=== PATIENT | male | born 1995 | race Caucasian/White ===

== ENCOUNTER 2016-09-02 10:44 | Emergency (ER) | payer MEDICAID ==
[~2016-09-02] VITALS: Ht 180.3 cm; Wt 110.9 kg
[~2016-09-02 10:44] MED LIST: ACET-2321 PO; ALBU8.5H INH; ARIP30TA11 PO; CLON1TAB4 PO; DIPH28.34 TOP; HYDR50TA48 PO; LITH300T2 PO; LITH600C PO; LORA0.5T2 PO; MAG-76 PO; MELA5TAB13 PO; ONDA4TAB10 PO; PALI6TAB PO; [UNRECOGNIZED DRUG - CODE] PO
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
--- OUTSIDE RECORDS SUMMARY | 2016-09-02 10:49 | XMS REPORT | Continuity of Care Document ---
Author Author [facility] Organization [facility] Address Unknown Phone Unavailable Care Team Providers Care Editorial Project Manager Name Role Phone KATIE LINK Primary Care Physician [phone] Insurance Providers Guarantor Elan Little Address [address] [place] [address] Email DENIED 07-06-16 [facility] Policy Number [id number] Subscriber's Name AnabelElan wilder Bria Relationship 18 Self Effective Date 16 Expiration Date 16 Advance Directives Directive Response Recorded Date/Time Advanced Directives Type None 07/06/16 2:52pm Chief Complaint and Reason for Visit Chief Complaint Psychiatric Problems Reason for Visit Suicidal ideation Bipolar disorder Problems Active Problems Medical Problem Onset Date Status Addiction Unknown Past Problems Medical Problem Onset Date Bipolar disorder Unknown Bronchitis Unknown Marijuana abuse Unknown Patient left without being seen Unknown Stress response Unknown Suicidal ideation Unknown Suicidal ideation Unknown Tobacco abuse Unknown Medications Current Home Medications Medication Dose Units Route Directions Days Qty Instructions Start Date Acetaminophen (Tylenol) 325 Mg Tablet 650 Mg Oral Every 4 Hours as needed for Pain/Fever 03/27/16 Albuterol Sulfate (Proair Hfa 90 Mcg/Actuation) 8.5 Gm Hfa.aer.ad 1 Puff Inhalation Every 4 Hours as needed for Shortness Of Air/Wheezing 10/06 Aripiprazole 30 Mg Tablet 30 Mg Oral Daily 11/10/15 Clonazepam 1 Mg Tablet 1 Mg Oral Twice A Day 07/06/16 Diphenhydramine Hcl/Zinc Acet (Benadryl Itch Stopping Crm) 28.3 Gm Cream..g. 1 Applic Topically Three Times A Day as needed for Itching 04/27/16 Guaifenesin/Dextromethorphan (Q-Tussin Dm Syrup) 473 Ml Syrup 5 Ml Oral Every 6 Hours as needed for Cough 03/27/16 Hydroxyzine Hcl 50 Mg Tablet 50 Mg Oral Twice A Day 04/27/16 [place] Carbonate 300 Mg Tablet.er 300 Mg Oral Twice A Day 0700 & 1400 11/10/15 [place] Carbonate 600 Mg Capsule 600 Mg Oral Bedtime 11/10/15 Lorazepam 0.5 Mg Tablet 0.5 Mg Oral Daily as needed for Anxiety 03/27/16 Mag Hydrox/Al Hydrox/Simeth (Antacid Liquid) 355 Ml Oral.susp 30 Ml Oral Daily as needed for Indigestion 04/27/16 Melatonin 5 Mg Tab.rapdis 10 Mg Oral Bedtime as needed for Insomnia 04/27/16 Ondansetron (Ondansetron Odt) 4 Mg Tab.rapdis 4 Mg Oral Four Times Daily as needed for Nausea &/Or Vomiting 07/06/16 Paliperidone (Invega) 6 Mg Tab.er.24 6 Mg Oral Bedtime 11/10/15 Social History Social History Problem Response Recorded Date/Time Onset Date Status Hx Substance Use Y HX OF MARIJUANA USE 07/06/2016 3:18pm Not Applicable Not Applicable Hx Alcohol Use Y RARELY 07/06/2016 3:18pm Not Applicable Not Applicable Tobacco Usage none 11/10/2015 10:38pm Not Applicable Not Applicable Query Response Start Date Stop Date Smoking Status Never smoker Hospital Discharge Instructions No hospital discharge instructions. Plan of Care Discharge Date 07/06/16 6:31pm Disposition 65 TO PSYCH HOSP/UNIT Condition at Discharge Stable Instructions/Education Provided Medical Clearance for Psychiatric Care (ED) Prescriptions See Medication Section Referrals GARRY JEROME MD Address: [address] [place] [address] [phone] KATIE LINK Address: [address] [place] [address] Functional Status No functional status results. Allergies, Adverse Reactions, Alerts Allergen Type Severity Reaction Status Last Updated Ziprasidone Allergy Severe "JAW LOCKS UP" Active 07/06/16 Immunizations Query Response on File Recorded Date/Time Influenza Vaccine Hx 201507/06/16 3:18pm Vital Signs Acute Vital Signs Vital Response Date/Time Temperature (Fahrenheit) 98.1 deg F (96.8 - 99.1) 07/06/2016 6:31pm Temperature (Calculated Celsius) 36.07423 degrees C (36.0 - 37.3) 07/06/2016 6:31pm Pulse Rate (adult) 87 bpm (60 - 100) 07/06/2016 6:31pm Respiratory Rate 18 breaths/min (10 - 20) 07/06/2016 6:31pm O2 Sat by Pulse Oximetry 100 % (90 - 100) 07/06/2016 6:31pm Blood Pressure 132/75 mm Hg 07/06/2016 6:31pm Height (Feet) 5 feet 07/06/2016 2:52pm Height (Inches) 11.00 inches 07/06/2016 2:52pm Weight (Kilograms) 113.700 kg 07/06/2016 2:52pm Body Mass Index (BMI) 34.0 07/06/2016 2:52pm Results Laboratory Results Test Name Result Units Flags Reference Collection Date/Time Result Date/ Time Comments B-Hydroxybutyrate 0.10 MMOL/L 0-0.6 04/27/2016 11:15am 04/27/2016 11: 34am Oxygen Delivery Method (LAB) ROOM AIR 04/27/2016 11:16am 2015 11:23am Venous Blood pH 7.370 7.31-7.41 04/27/2016 11:16am 04/27/2016 11: 23am Venous Blood Partial Pressure CO2 46 MMHG 40-52 04/27/2016 11:16am 09/2015 11:23am Venous Blood Partial Pressure O2 37 MMHG L 40-52 04/27/2016 11:16am 09/2015 11:23am Venous Blood HCO3 27 MEQ/L H 22-26 04/27/2016 11:16am 04/27/2016 11: 23am Venous Blood Total Carbon Dioxide 28.0 MEQ/L 04/27/2016 11:16am 04/27 11:23am Venous Blood Base Excess 0.9 MMOL/L -2.0-2.0 04/27/2016 11:16am 2015 11:23am Venous Blood Oxygen Saturation 69.0 % 04/27/2016 11:16am 04/27/2016 11:23am White Blood Count 11.8 T/MM3 H 4.5-11.0 07/06/2016 3:52pm 07/06/2016 4: 04pm Red Blood Count 5.25 M/MM3 4.50-5.90 07/06/2016 3:pm 07/06/2016 4: 04pm Hemoglobin 15.4 GM/DL 13.5-17.5 07/06/2016 3:pm 07/06/2016 4:04pm Hematocrit 45.3 % 41-53 07/06/2016 3:07/06/2016 4:04pm Mean Corpuscular Volume 86.3 UM3 80-100 07/06/2016 3:07/06/2016 4: 04pm Mean Corpuscular Hemoglobin 29.3 UUG 26-34 07/06/2016 3:2016 4:04pm Mean Corpuscular Hemoglobin Concent 34.0 GM/DL 31-37 07/06/2016 3:07/06/2016 4:04pm RDW Standard Deviation 40.3 FL 36.9-50.2 07/06/2016 3:07/06/2016 4 :04pm Platelet Count 314 T/MM3 130-400 07/06/2016 3:07/06/2016 4:04pm Mean Platelet Volume 9.7 UM3 9.4-12.4 07/06/2016 3:07/06/2016 4: 04pm Neutrophils (%) (Auto) 68.7 % H 33-66 07/06/2016 3:07/06/2016 4: 04pm Lymphocytes (%) (Auto) 21.8 % L 23-45 07/06/2016 3:07/06/2016 4: 04pm Monocytes (%) (Auto) 5.4 % 0-9.0 07/06/2016 3:07/06/2016 4:04pm Eosinophils (%) (Auto) 3.6 % 0-4 07/06/2016 3:07/06/2016 4:04pm Basophils (%) (Auto) 0.3 % 0-2 07/06/2016 3:07/06/2016 4:04pm Immature Granulocyte % (Auto) 0.2 % 0.0-0.5 07/06/2016 3:52pm 2016 4:04pm Absolute Neutrophils (auto) 8.1 T/MM3 H 1.8-7.7 07/06/2016 3:2016 4:04pm Absolute Lymphocytes (auto) 2.6 T/MM3 1-4.8 07/06/2016 3:52pm 2016 4:04pm Absolute Monocytes (auto) 0.6 T/MM3 0-0.8 07/06/2016 3:52pm 07/06/2016 4:04pm Absolute Eosinophils (auto) 0.4 T/MM3 0-0.5 07/06/2016 3:52pm 2016 4:04pm Absolute Basophils (auto) 0.0 T/MM3 0-0.2 07/06/2016 3:52pm 07/06/2016 4:04pm Absolute Immature Granulocyte (auto 0.02 T/MM3 0.00-0.03 07/06/2016 3: 07/06/2016 4:04pm Icterus Index < 2 0-7 07/06/2016 3:07/06/2016 4:14pm Chemistry Specimen Hemolysis < 15 0-25 07/06/2016 3:pm 07/06/2016 4 :14pm 0-25: Specimen Exhibited No Hemolysis. Turbidity < 20 0-20 07/06/2016 3:pm 07/06/2016 4:14pm Sodium Level 141 MEQ/L 134-144 07/06/2016 3:52pm 07/06/2016 4:14pm Potassium Level 3.9 MEQ/L 3.6-5 07/06/2016 3:07/06/2016 4:14pm Chloride Level 106 MEQ/L 98-107 07/06/2016 3:52pm 07/06/2016 4:14pm Carbon Dioxide Level 24 MEQ/L 22-30 07/06/2016 3:52pm 07/06/2016 4: 14pm Anion Gap 11 MEQ/L 5-15 07/06/2016 3:52pm 07/06/2016 4:14pm Blood Urea Nitrogen 13.0 MG/DL 9-20 07/06/2016 3:52pm 07/06/2016 4: 14pm Creatinine 1.0 MG/DL 0.8-1.5 07/06/2016 3:52pm 07/06/2016 4:14pm BUN/Creatinine Ratio 13 RATIO 6-26 07/06/2016 3:52pm 07/06/2016 4:14pm Glomerular Filtration Rate Calc 95 07/06/2016 3:52pm 07/06/2016 4: 14pm Glucose Level 91 MG/DL 75-110 07/06/2016 3:52pm 07/06/2016 4:14pm Calculated Osmolality 271 MOSM/KG 261-280 07/06/2016 3:52pm 07/06/2016 4:14pm Calcium Level 9.5 MG/DL 8.4-10.2 07/06/2016 3:52pm 07/06/2016 4:14pm Total Bilirubin 0.30 MG/DL 0.20-1.30 07/06/2016 3:52pm 07/06/2016 4: 14pm Alkaline Phosphatase 69 U/L 38-126 07/06/2016 3:52pm 07/06/2016 4:14pm Total Protein 6.9 G/DL 6.3-8.2 07/06/2016 3:52pm 07/06/2016 4:14pm Albumin 4.1 G/DL 3.5-5.0 07/06/2016 3:52pm 07/06/2016 4:14pm Globulin 2.8 G/DL 2.4-3.6 07/06/2016 3:52pm 07/06/2016 4:14pm Albumin/Globulin Ratio 1.5 RATIO 1.1-2.2 07/06/2016 3:pm 07/06/2016 4 :14pm Aspartate Amino Transf (AST/SGOT) 26 U/L 17-59 07/06/2016 3:52pm 2016 4:14pm Alanine Aminotransferase (ALT/SGPT) 52 U/L 21-72 07/06/2016 3:52pm 4:14pm Magnesium Level 1.8 MG/DL 1.6-2.3 07/06/2016 3:52pm 07/06/2016 4:14pm Acetaminophen Level < 10 UG/ML L 10-30 07/06/2016 3:52pm 07/06/2016 4: 14pm TOXIC <4 HR POST INGESTION: >150 MG/L; TOXIC <12 HR POST INGESTION: >50 MG/L Salicylates Level < 1.0 MG/DL L 2-20 07/06/2016 3:52pm 07/06/2016 4: 14pm Alcohol, Quantitative <10 MG/DL <10 07/06/2016 3:52pm 07/06/2016 4: 14pm [place]on Level 0.6 MMOL/L 0.6-1.2 07/06/2016 3:52pm 07/06/2016 4:12pm Urine Collection Type VOIDED-NOT CC-MIDSTR 07/06/2016 3:57pm 2016 4:08pm Urine Color YELLOW YELLOW 07/06/2016 3:57pm 07/06/2016 4:08pm Urine Turbidity CLEAR CLEAR 07/06/2016 3:57pm 07/06/2016 4:08pm Urine Specific [place] 1.020 1.015-1.025 07/06/2016 3:57pm 2016 4:08pm Urine pH 6.0 5.0-8.0 07/06/2016 3:57pm 07/06/2016 4:08pm Urine Leukocyte Esterase NEGATIVE NEGATIVE 07/06/2016 3:57pm 2016 4:08pm Urine Nitrite NEGATIVE NEGATIVE 07/06/2016 3:57pm 07/06/2016 4:08pm Urine Protein NEGATIVE NEGATIVE 07/06/2016 3:57pm 07/06/2016 4:08pm Urine Glucose (UA) NEGATIVE NEGATIVE 07/06/2016 3:57pm 07/06/2016 4: 08pm Urine Ketones NEGATIVE NEGATIVE 07/06/2016 3:57pm 07/06/2016 4:08pm Urine Urobilinogen 0.2 EU/DL NORMAL 07/06/2016 3:57pm 07/06/2016 4: 08pm Urine Bilirubin NEGATIVE NEGATIVE 07/06/2016 3:57pm 07/06/2016 4: 08pm Urine Blood NEGATIVE NEGATIVE 07/06/2016 3:57pm 07/06/2016 4:08pm Urinalysis Comment MICROSCOPIC NOT IND. 07/06/2016 3:57pm 2016 4:08pm Procedures Procedure Status Date Provider(s) Routine venipuncture Completed 04/27/16 X-ray exam series abdomen Completed 04/27/16 Metabolic panel total ca Completed 04/27/16 Drug screen quantalcohols Completed 04/27/16 Analgesics non-opioid 1 or 2 Completed 04/27/16 Analgesics non-opioid 1 or 2 Completed 04/27/16 Acetone assay Completed 04/27/16 Blood gases any combination Completed 04/27/16 Complete cbc w/auto diff wbc Completed 04/27/16 Electrocardiogram tracing Completed 04/27/16 Hydrate iv infusion add-on Completed 04/27/16 Ther/proph/diag iv inf init Completed 04/27/16 Tx/pro/dx inj new drug addon Completed 04/27/16 Emergency dept visit Completed 04/27/16 830720"INJECTION, ONDANSETRON HYDROCHLORIDE, PER 1 MG" Completed 04/27/16 936787"INFUSION, NORMAL SALINE SOLUTION , 1000 CC" Completed 04/27/16 537016"INFUSION, NORMAL SALINE SOLUTION , 250 CC" Completed 04/27/16 794722"INJECTION, FAMOTIDINE, 20 MG" Completed 04/27/16 Encounters Encounter Location Arrival/Admit Date Discharge/Depart Date Attending Provider Departed Emergency Room [facility] 07/06/16 2:49pm 07/06/16 6: 31pm INDIANA DASH MD Departed Emergency Room [facility] 04/27/16 10:28am 04/27/16 12: 35pm SEPTEMBERRANDY DO Departed Emergency Room [facility] 04/26/16 10:41pm 04/26/16 11: 48pm NAYANA CHURCH MD Recent Diagnosis
[2016-09-02 10:50] VITALS: Ht 180.3 cm; Wt 110.9 kg
--- NOTE | 2016-09-02 11:09 | NUR ---
DR DR FUNK AT BEDSIDE.
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
--- NOTE | 2016-09-02 11:18 | ERPDOC ---
Departure Disposition Decision Date: Sep 02, 2016 Disposition Decision Time: 13:07 Disposition: 66 TO [facility] Impression Impression Impression: Primary Impression: Suicidal ideation Additional Impression: Bipolar disorder Severity: Moderate Condition: Stable Seen By: Physician only Referrals: KATIE LINK (PCP) GARRY JEROME MD (Family) Problems/Meds/Labs Reviewed?: Yes Medications reviewed and manag: Yes Follow up care ordered?: Yes Mental Status: Alert, Oriented [facility] - General Medical General Chief Complaint: Psychiatric Problems Stated Complaint: PSYCH EVAL Time Seen by Provider: 11:15 HPI - General Medical Initial Comments 21-year-old male presents with self-harm thoughts. Patient has a history of bipolar disorder, multiple medication and lives at [facility] in a local [facility]. 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 He feels like he has anger issues. He does not necessarily want to but feels like he is going to harm himself because of the thoughts he is having. He is taking trazodone which he thinks helps with sleep, but feels like his medications need to be adjusted. He did have an inpatient admission about a month ago to [facility], but left voluntarily and regrets it. Allergies: Coded Allergies: ziprasidone (Verified Allergy, Severe, "JAW LOCKS UP", 09/02/16) Past History Past Medical History Psychological: bipolar, depression Surgical History Denies Surgeries Family History Family History: Negative Social History Substance Use Type: marijuana Alcohol Intake: none Record Review Pertinent history updated: Yes Review of Systems Neurological General: see HPI Psychiatric Psychiatric: see HPI All other Systems All Other Systems: Reviewed and Negative Physical Exam General General Nourishment: well nourished, no acute distress, obese Vitals and Pain First Documented Vital Signs Date Time Temp Pulse Resp B/P Pulse Ox O2 Delivery O2 Flow Rate FiO2 09/02/16 10:50 98.9 90 16 119/60 98 Room Air Weight: Kilograms: Height (feet): 5 Height (inches): 11.00 Triage Pain Scale: Normal Exams: Head: Normocephalic w/o trauma Chest/Resp: Clear all lang, with good airflow, and symmetry bilaterally CV: Regular rate and rhythm, without murmur or gallop, Pulses 2+ all extremities, capillary refill, <2 seconds all ext., no pedal edema noted Abdomen: Bowel sounds positive, soft, non-tender, non-distended, no hepatosplenomegaly, masses or bruits noted Neurologic: Patient is alert, and oriented, cranial nerves, motor/sensory/ cerebellar, exams w/o gross deficits, to observation Differential Diagnoses Considering: Alcohol Intoxication, Depression, Encephalitis, Meningitis, Psychosis Progress Results/Orders Orders Procedure Category Date Status Time Cbc W/Auto LAB 09/02/16 Complete Diff-Reflex Manual 11:20 Cmp - Comprehensive LAB 09/02/16 Complete Metabolic 11:20 Ethanol LAB 09/02/16 Complete 11:20 Drug Screen LAB 09/02/16 Complete [place] [facility] [place] Acetaminophen LAB 09/02/16 Complete 11:20 Salicylate LAB 09/02/16 Complete 11:20 Ua, Dip Wreflex LAB 09/02/16 Complete Microsc & Career Manager 11:20 Tsh - Thyroid Stim LAB 09/02/16 Complete Hormone 11:20 Lab Results Laboratory Tests Test 09/02/16 11:36 09/02/16 11:43 09/02/16 12:24 White Blood Count 10.3T/MM3 Red Blood Count 5.23M/MM3 Hemoglobin 15.3GM/DL Hematocrit 46.0% Mean Corpuscular Volume 88.0UM3 Mean Corpuscular Hemoglobin 29.3UUG Mean Corpuscular Hemoglobin Concent 33.3GM/DL RDW Standard Deviation 42.5FL Platelet Count 322T/MM3 Mean Platelet Volume 9.6UM3 Immature Granulocyte % (Auto) 0.1% Neutrophils (%) (Auto) 68.5% Lymphocytes (%) (Auto) 20.0% Monocytes (%) (Auto) 6.0% Eosinophils (%) (Auto) 5.0% Basophils (%) (Auto) 0.4% Absolute Immature Granulocyte (auto 0.01T/MM3 Absolute Neutrophils (auto) 7.0T/MM3 Absolute Lymphocytes (auto) 2.1T/MM3 Absolute Monocytes (auto) 0.6T/MM3 Absolute Eosinophils (auto) 0.5T/MM3 Absolute Basophils (auto) 0.0T/MM3 Turbidity < 20 Sodium Level 145MEQ/L Potassium Level 4.4MEQ/L Chloride Level 108MEQ/L Carbon Dioxide Level 26MEQ/L Anion Gap 11MEQ/L Blood Urea Nitrogen 12.0MG/DL Creatinine 0.9MG/DL Glomerular Filtration Rate Calc 108 BUN/Creatinine Ratio 13RATIO Glucose Level 97MG/DL Calculated Osmolality 279MOSM/KG Calcium Level 9.7MG/DL Total Bilirubin 0.70MG/DL Icterus Index < 2 Aspartate Amino Transf (AST/SGOT) 35U/L Alanine Aminotransferase (ALT/SGPT) 55U/L Alkaline Phosphatase 65U/L Total Protein 7.2G/DL Albumin 4.4G/DL Globulin 2.8G/DL Albumin/Globulin Ratio 1.6RATIO Thyroid Stimulating Hormone (TSH) 2.31MIU/L Chemistry Specimen Hemolysis 36 Salicylates Level < 1.0MG/DL Acetaminophen Level < 10UG/ML Alcohol, Quantitative <10MG/DL Urine Collection Type Voided-not cc-midstr Urine Color Yellow Urine Turbidity Clear Urine pH 7.5 Urine Specific [place] 1.010 Urine Protein Negative Urine Glucose (UA) Negative Urine Ketones Negative Urine Blood Negative Urine Nitrite Negative Urine Bilirubin Negative Urine Urobilinogen 1.0EU/DL Urine Leukocyte Esterase Negative Urinalysis Comment Microscopic not ind. Urine Opiates Screen NegativeNG/ML Urine Oxycodone Screen NegativeNG/ML Urine Methadone Screen NegativeNG/ML Urine Propoxyphene Screen NegativeNG/ML Urine Barbiturates Screen NegativeNG/ML Urine Tricyclic Antidepressants NegativeNG/ML Urine Phencyclidine Screen NegativeNG/ML Urine Amphetamines Screen NegativeNG/ML Urine Methamphetamines Screen NegativeNG/ML Urine Benzodiazepines Screen NegativeNG/ML Urine Cocaine Screen NegativeNG/ML Urine Cannabinoids Screen NegativeNG/ML Lab Scanned Report REFERENCE [id number] Progress Progress Patient is medically stable with normal labs. He is on the verge of intent, having come to the emergency department because he is having suicidal thoughts and is afraid that he will harm himself. He is voluntary for admission. I spoke with Moody Quiles APRN at [facility] and patient is appropriate for admission. Pt is stable on discharge to [facility]. EDWINA FUNK MD Sep 02, 2016 11:18
--- NOTE | 2016-09-02 11:23 | NUR ---
LAB NOTIFIED TECH OF NEED FOR VENIPUNTURE AND PRESENCE FOR UA/UDS.
--- NOTE | 2016-09-02 11:25 | NUR ---
STATUS PT SITTING IN BEDSIDE CHAIR NEXT TO RESCARE DAY SERVICES WORKER. PT AND WORKER LISTENING TO MUSIC ON PHONE. INFORMED PT OF PENDING LAB WORK AND URINE NEEDED. UNDERSTANDING VERBALIZED.
[2016-09-02] MEDS ORDERED: TRAZ-173 PO (11:30)
--- NOTE | 2016-09-02 11:36 | NUR ---
MEDICAL INSURANCE CODING SPECIALIST AT BEDSIDE FOR VENIPUNCTURE AND UDS COLLECTION.
[2016-09-02 11:50] LABS: BASOPHILS % (AUTO) 0.4 % (0-2); EOSINOPHILS # (AUTO) 0.5 T/MM3 (0-0.5); HGB - HEMOGLOBIN 15.3 GM/DL (13.5-17.5); IMMATURE GRANULOCYTE # (AUTO) 0.01 T/MM3 (0.00-0.03); IMMATURE GRANULOCYTE % (AUTO) 0.1 % (0.0-0.5); LYMPHOCYTES # (AUTO) 2.1 T/MM3 (1-4.8); MEAN CORPUSCULAR HGB 29.3 UUG (26-34); MEAN CORPUSCULAR HGB CONC(MCHC 33.3 GM/DL (31-37); MEAN PLATELET VOLUME 9.6 UM3 (9.4-12.4); MONOCYTES # (AUTO) 0.6 T/MM3 (0-0.8); NEUTROPHILS % (AUTO) 68.5 % (33-66); RED BLOOD COUNT 5.23 M/MM3 (4.50-5.90); WBC - WHITE BLOOD COUNT 10.3 T/MM3 (4.5-11.0)
[2016-09-02 11:51] LABS: BLOOD, URINE NEGATIVE (NEGATIVE); COLOR,URINE YELLOW (YELLOW); LEUKOCYTE ESTERASE ,URINE NEGATIVE (NEGATIVE); NITRITE,URINE NEGATIVE (NEGATIVE)
[2016-09-02 12:00] LABS: AMPHETAMINE SCREEN,URINE NEGATIVE; BARBITURATE SCREEN,URINE NEGATIVE; BENZODIAZEPINES SCREEN,URINE NEGATIVE; CANNABINOID SCREEN,URINE NEGATIVE; COCAINE SCREEN,URINE NEGATIVE; METHADONE SCREEN, URINE NEGATIVE; METHAMPHETAMINE SCREEN, URINE NEGATIVE; OPIATE SCREEN,URINE NEGATIVE; PHENCYCLIDINE SCREEN,URINE NEGATIVE; TRICYCLIC ANTIDEPRESSANT,URINE NEGATIVE
[2016-09-02 12:00] LABS: ACETAMINOPHEN < 10 UG/ML (10-30); ALBUMIN 4.4 G/DL (3.5-5.0); ALBUMIN/GLOBULIN RATIO 1.6 RATIO (1.1-2.2); ALKALINE PHOSPHATASE 65 U/L (38-126); ALT (SGPT) 55 U/L (21-72); ANION GAP 11 MEQ/L (5-15); AST (SGOT) 35 U/L (17-59); BUN/CREATININE RATIO 13 RATIO (6-26); CALCIUM 9.7 MG/DL (8.4-10.2); CHLORIDE 108 MEQ/L (98-107); CO2 - CARBON DIOXIDE 26 MEQ/L (22-30); CREATININE 0.9 MG/DL (0.8-1.5); ETHANOL <10 MG/DL (<10); GLOMERULAR FILTRATION RATE 108; GLUCOSE 97 MG/DL (75-110); POTASSIUM 4.4 MEQ/L (3.6-5); SALICYLATE < 1.0 MG/DL (2-20); SODIUM 145 MEQ/L (134-144); TOTAL PROTEIN 7.2 G/DL (6.3-8.2)
--- OUTSIDE RECORDS SUMMARY | 2016-09-02 12:04 | XMS REPORT | Continuity of Care Document ---
Author Author [facility] Organization [facility] Address Unknown Phone Unavailable Allergies Active Description [...] Status Pt. Type Provider Facility Loc./Unit Complaint [id number] 08/30/2013 10:23:00 2013 12:36:00 DIS Emergency Arturo Mclain MD [facility] on [address]
--- NOTE | 2016-09-02 12:19 | NUR ---
STATUS PT EDUCATED REGARDING INABILITY TO LEAVE UNIT TO SMOKE. RATIONAL PROVIDED. INSTRUCTED PT REGARDING PLAN OF CARE. RESCARE WORKER VERBALIZED UNDERSTANDING.
[2016-09-02 12:39] LABS: THYROID STIM HORMONE-TSH 2.31 MIU/L (0.47-4.68)
--- NOTE | 2016-09-02 12:40 | NUR ---
PO PT GIVEN SANDWICH, APPLESAUCE, PUDDING AND MILK OKAYED BY DR FUNK. RESCARE WORKER REMAINS AT BEDSIDE.
--- NOTE | 2016-09-02 12:46 | NUR ---
STATUS RESCARE WORKER CHANGED. NOW, CHERELLE, MEDICAL COORDINATOR OF RESCARE AT BEDSIDE.
--- NOTE | 2016-09-02 13:11 | NUR ---
DR DR FUNK AT BEDSIDE.
--- NOTE | 2016-09-02 13:24 | NUR ---
REPORT CALLED TO KASSIE CRUZ.
--- NOTE | 2016-09-02 13:26 | NUR ---
[facility] NOTIFIED OF NEED FOR EMS FOR TRANSFER TO [facility].
--- NOTE | 2016-09-02 13:34 | NUR ---
EMS AT BEDSIDE, REPORT GIVEN TO CLAIRE DOUGHERTY AND CECI RN PROCEDURE.
[2016-09-02 13:36] VITALS: BP 122/67; PULSE 96; RESP 18; TEMP 98.2; O2SAT 83
--- NOTE | 2016-09-02 13:36 | NUR ---
TRANSFER PT DEPARTED AT THIS TIME WITH [facility].
== END 2016-09-02 13:36 ==
LOC: ED 10:44
DX: R45.851 Suicidal ideations (principal); F31.9 Bipolar disorder, unspecified
CPT/HCPCS: 36415; 80053; 80306; 80307; 81003; 84443; 85025